=== PATIENT | male | born 1990 | race Caucasian/White ===

== ENCOUNTER 2017-04-22 16:41 | Emergency (ER) | payer OTHER ==
[~2017-04-22] VITALS: Ht 182.9 cm; Wt 100.0 kg
[2017-04-22 16:43] VITALS: BP 122/71
== END 2017-04-22 18:56 ==
LOC: ED 18:20
DX: S93.492A Sprain of other ligament of left ankle, initial encounter (principal); V87.8XXA Person injured in other specified noncollision transport accidents involving motor vehicle (traffic), initial encounter; Y93.89 Activity, other specified; Y92.89 Other specified places as the place of occurrence of the external cause; Y99.8 Other external cause status
CPT/HCPCS: 99284

== ENCOUNTER → 2017-06-27 | Outpatient (CLI) | payer OTHER | LOC: STAR 15:11 | PROVIDERS: ATTEND Orthopaedic Surgery Foot and Ankle Surgery | DX: Z02.9 Encounter for administrative examinations, unspecified (principal) ==

== ENCOUNTER 2017-07-05 05:16 | Day surgery (SDC) | payer OTHER ==
[~2017-07-05] VITALS: Ht 182.9 cm; Wt 105.4 kg
[2017-07-05] MEDS ORDERED: LACTATED RINGERS 1,000 ML IV SCH (05:41)
[2017-07-05 05:42] VITALS: BP 137/87
[2017-07-05] MEDS ORDERED: LIDOCAINE/PF 1%, 30ML ONE (06:31)
[2017-07-05] MEDS ORDERED: BUPIVACAINE/PF 0.5% ONE (06:31)
[2017-07-05] MEDS ORDERED: FENTANYL PF 100 MCG/2ML ONE ×2 (07:16)
[2017-07-05] MEDS ORDERED: PROPOFOL 10 MG/ML, 50ML ONE (07:16)
[2017-07-05] MEDS ORDERED: MIDAZOLAM 1 MG/ML, 2ML ONE (07:16)
[2017-07-05] MEDS ORDERED: DEXAMETHASONE 4 MG/ML, 1ML ONE (07:16)
[2017-07-05] MEDS ORDERED: ONDANSETRON 2MG/ML, 2ML ONE (07:16)
[2017-07-05] MEDS ORDERED: CEFAZOLIN 1,000 MG ONE (07:16)
[2017-07-05] MEDS ORDERED: MEPERIDINE/PF 25MG/0.5ML IVPush PRN (08:00)
[2017-07-05] MEDS ORDERED: MIDAZOLAM 1 MG/ML, 2ML IV PRN (08:00)
[2017-07-05] MEDS ORDERED: hydrALAzine 20 MG/ML, 1ML IV PRN (08:00)
[2017-07-05] MEDS ORDERED: METOPROLOL 1 MG/ML, 5ML IV PRN (08:00)
[2017-07-05] MEDS ORDERED: ACETAMINOPHEN 325 MG TABLET PO PRN (08:00)
[2017-07-05] MEDS ORDERED: ALBUTEROL SULFATE 2.5 MG/3 ML NPPB PRN (08:00)
[2017-07-05] MEDS ORDERED: FENTANYL PF 100 MCG/2ML IV PRN (08:00)
[2017-07-05] MEDS ORDERED: PROMETHAZINE 25 MG/ML, 1ML IV PRN (08:00)
[2017-07-05] MEDS ORDERED: HYDROmorphone 1 MG/ML, 1ML IV PRN (08:00)
[2017-07-05] MEDS ORDERED: OXYcodone 5 MG/5 ML ORAL.SOL UDC PO PRN (08:00)
[2017-07-05] MEDS ORDERED: ACETAMINOPHEN 325 MG/10.15 ML UDC ONE (09:05)
[2017-07-05] MEDS ORDERED: ACETAMINOPHEN 650 MG/20.3 ML UDC ONE (09:05)
[2017-07-05] MEDS ORDERED: OXYcodone 5 MG/5 ML ORAL.SOL UDC ONE (09:06)
[2017-07-05] MEDS ORDERED: PROMETHAZINE 25 MG/ML, 1ML ONE (09:27)
== END 2017-07-05 10:50 ==
LOC: OUT 05:16
PROVIDERS: ATTEND Orthopaedic Surgery Foot and Ankle Surgery
DX: M25.371 Other instability, right ankle (principal)
CPT/HCPCS: 27695; 29897; C1713; J0690; J1100; J2250; J2405; J2550; J2704; J3010; J3490; J7120

== ENCOUNTER 2017-12-02 07:16 | Emergency (ER) | payer OTHER ==
[~2017-12-02] VITALS: Ht 182.9 cm; Wt 104.9 kg
[2017-12-02 07:17] VITALS: BP 134/83
[2017-12-02] MEDS ORDERED: AMOX1TAB64 PO (07:38)
[2017-12-02] MEDS ORDERED: IBUP-1223 PO (07:38)
== END 2017-12-02 08:46 | disposition home or self-care (01) ==
LOC: ED 07:45
DX: K02.9 Dental caries, unspecified (principal)
CPT/HCPCS: 99281

== ENCOUNTER → 2017-12-11 | Outpatient (CLI) | payer OTHER ==
[~2017-12-11] MED LIST: AMOX1TAB64 PO; IBUP-1223 PO
== END ==
LOC: LAB 15:51
PROVIDERS: ATTEND Internal Medicine Infectious Disease
DX: Z00.00 Encounter for general adult medical examination without abnormal findings (principal)
CPT/HCPCS: 36415; 86480

== ENCOUNTER → 2018-08-26 | Outpatient (CLI) | payer OTHER ==
[~2018-08-26] MED LIST changes: +GADOBUTROL 10 MMOL/10 ML PFS ONE
== END | disposition home or self-care (01) ==
LOC: CFH 14:32
PROVIDERS: ATTEND Registered Nurse
DX: G43.709 Chronic migraine without aura, not intractable, without status migrainosus (principal)
CPT/HCPCS: 70553; A9585